=== PATIENT | female | born 1985 | race Caucasian/White ===

== ENCOUNTER 2019-04-13 16:55 | Emergency (ER) | payer OTHER ==
[~2019-04-13] VITALS: Ht 154.9 cm; Wt 52.2 kg
[2019-04-13] MEDS ORDERED: IV NS 0.9% 1,000 ML BAG IV ONE (17:30)
--- NOTE | 2019-04-13 17:30 | NUR ---
RN NOTES L FOREARM IV G 20 INSEARTED .
[2019-04-13 17:33] LABS: BASOPHILS # (AUTO) 0.1 /CMM (0.0-0.2); BASOPHILS % (AUTO) 0.8 % (0.0-2.0); EOSINOPHILS % (AUTO) 2.1 % (0.0-6.0); HEMATOCRIT 40 % (33-45); HEMOGLOBIN 13.8 g/dL (11.5-14.8); LYMPHOCYTES # (AUTO) 2.3 /CMM (0.8-4.8); LYMPHOCYTES % (AUTO) 26.7 % (20.0-44.0); MEAN CORPUSCULAR HGB CONC 34 g/dl (31.0-36.0); MEAN CORPUSCULAR VOLUME 90 fL (82-100); MONOCYTES # (AUTO) 0.5 /CMM (0.1-1.30); MONOCYTES % (AUTO) 5.4 % (2.0-12.0); NEUTROPHILS # (AUTO) 5.6 /CMM (1.8-8.9); PLATELET COUNT (AUTO) 313 /CMM (150-450); RED BLOOD CELL COUNT(AUTO) 4.45 MIL/uL (4.0-5.2); WHITE BLOOD COUNT (AUTO) 8.5 K/uL (4.3-11.0)
[2019-04-13 17:39] LABS: CALCIUM, SERUM 9.1 mg/dL (8.5-10.1); CARBON DIOXIDE 26 mmol/L (21-32); CHLORIDE 106 mmol/L (98-107); CREATININE 0.6 mg/dL (0.6-1.3); GLUCOSE 101 mg/dL (74-106); POTASSIUM 3.7 mmol/L (3.5-5.1); SODIUM SERUM 142 mmol/L (136-145); UREA NITROGEN, BLOOD 10 mg/dL (7-18)
[2019-04-13 17:45] LABS: ALANINE AMINOTRANSFERASE 19 U/L (12-78); ALBUMIN 4.1 g/dL (3.4-5.0); ALKALINE PHOSPHATASE 81 U/L (46-116); ASPARTATE AMINOTRANSFERASE 12 U/L (15-37); BILIRUBIN,DIRECT 0.1 mg/dL (0.0-0.2); BILIRUBIN,TOTAL 0.5 mg/dL (0.2-1.0); LIPASE 127 U/L (73-393); TOTAL PROTEIN, SERUM 7.3 g/dL (6.4-8.2)
[2019-04-13 17:50] LABS: APPEARANCE,URINE Clear (CLEAR); BILIRUBIN,URINE Negative (NEGATIVE); BLOOD, URINE Trace-intact Ery/uL (NEGATIVE); COLOR,URINE Yellow (YELLOW); KETONES,URINE Negative (NEGATIVE); LEUKOCYTE ESTERASE ,URINE Moderate (NEGATIVE); NITRITE, URINE Negative (NEGATIVE); PROTEIN,URINE Negative (NEGATIVE); UGLUCOSE Negative (NEGATIVE); UROBILINOGEN,URINE 0.2 EU/dL (0.2)
--- NOTE | 2019-04-13 17:53 | NUR ---
RN NOTES PT WALKED IN TO ER AMBULATORY , STATED TOOK A LYFT TO GET TO ER . PT IS A/Ox4, C/O PALPITAION AND STATED THAT SHE FEELS LIKE HER HEART IS RACING AT TIMES , SHE STATED FEELS OK RIGHT NOW , ILBIA TRAN MD AT THE BEDSIDE TO ASSESS THE PT . LIBIA TRAN CONTINUE TO MONITOR . Addendum: 04/13/19 at 1757 by SARWAT CORRECTION ABOVE TIME IS 17:20
[2019-04-13 17:55] LABS: BACTERIA,URINE Moderate /HPF (None Seen); SQUAMOUS EPITHELIAL CELL,UR Moderate /HPF (None Seen)
[2019-04-13 18:31] VITALS: BP 118/89
--- NOTE | 2019-04-13 18:32 | NUR ---
RN NOTES DICHARG INSTRUCTION GIVEN PT , VERBALIZES UNDERSTANDING , IIV SITE REMOVED, PT LEFT THE IN ER AMBULATORY ACCOMPANIED BY FRIEND IN [place] .
== END 2019-04-13 18:54 | disposition home or self-care (01) ==
LOC: ER 17:00
DX: F41.9 Anxiety disorder, unspecified (principal); R07.89 Other chest pain; N39.0 Urinary tract infection, site not specified
CPT/HCPCS: 36415; 71045; 80048; 80076; 81001; 83690; 84484; 84703; 85025; 87086; 93005; 99284; J7030; 81000-TC

== ENCOUNTER 2019-04-16 02:02 | Emergency (ER) | payer OTHER ==
[~2019-04-16] VITALS: Ht 154.9 cm; Wt 52.2 kg
[2019-04-16 02:25] VITALS: BP 107/82
--- NOTE | 2019-04-16 02:53 | NUR ---
TECH AT BEDSIDE FOR EKG
== END 2019-04-16 03:40 | disposition home or self-care (01) ==
LOC: ER 02:05
DX: F41.9 Anxiety disorder, unspecified (principal); G47.00 Insomnia, unspecified

== ENCOUNTER 2019-09-07 15:58 | Emergency (ER) | payer OTHER ==
[~2019-09-07] VITALS: Ht 154.9 cm; Wt 49.9 kg
--- NOTE | 2019-09-07 16:16 | NUR ---
abd pain and constipation x 4 days, Hx of crohn's dse. on room air, breathing evenly and unlabored. kept comfortable, will continue to monitor accordingly.
[2019-09-07] MEDS ORDERED: SODIUM POLYSTYRENE SULFONATE 15 G/60 ML BOTTLE ONE (16:27)
[2019-09-07] MEDS ORDERED: SODIUM POLYSTYRENE SULFONATE 15 G/60 ML BOTTLE RC ONE (16:30)
[2019-09-07 16:35] LABS: BASOPHILS % (AUTO) 0.2 % (0.0-2.0); EOSINOPHILS % (AUTO) 0.1 % (0.0-6.0); HEMATOCRIT 42 % (33-45); LYMPHOCYTES # (AUTO) 1.4 /CMM (0.8-4.8); LYMPHOCYTES % (AUTO) 11.5 % (20.0-44.0); MEAN CORPUSCULAR HGB CONC 34 g/dl (31.0-36.0); MEAN CORPUSCULAR VOLUME 89 fL (82-100); MONOCYTES # (AUTO) 0.5 /CMM (0.1-1.30); MONOCYTES % (AUTO) 4.2 % (2.0-12.0); NEUTROPHILS # (AUTO) 10.2 /CMM (1.8-8.9); PLATELET COUNT (AUTO) 351 /CMM (150-450); RED BLOOD CELL COUNT(AUTO) 4.69 MIL/uL (4.0-5.2); WHITE BLOOD COUNT (AUTO) 12.1 K/uL (4.3-11.0)
[2019-09-07 16:52] VITALS: BP 128/82
--- NOTE | 2019-09-07 16:52 | NUR ---
Patient discharged to home in stable condition. Written and verbal after care instructions given. Patient verbalizes understanding of instruction.
--- NOTE | 2019-09-07 16:53 | NUR ---
Patient discharged to home in stable condition. Written and verbal after care instructions given. Patient verbalizes understanding of instruction.
[2019-09-07 17:01] LABS: ALBUMIN 4.3 g/dL (3.4-5.0); BILIRUBIN,DIRECT 0.2 mg/dL (0.0-0.2); BILIRUBIN,TOTAL 0.9 mg/dL (0.2-1.0); CALCIUM, SERUM 9.7 mg/dL (8.5-10.1); CREATININE 0.7 mg/dL (0.6-1.3); POTASSIUM 3.8 mmol/L (3.5-5.1); TOTAL PROTEIN, SERUM 7.5 g/dL (6.4-8.2)
== END 2019-09-07 16:53 | disposition home or self-care (01) ==
LOC: ER 16:00
DX: K59.00 Constipation, unspecified (principal); F41.9 Anxiety disorder, unspecified; Z98.890 Other specified postprocedural states
CPT/HCPCS: 36415; 74021; 80048-TC; 80076-TC; 85025-TC